=== PATIENT | female | born 2000 | race Two or more races ===

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

== ENCOUNTER → 2021-04-11 | Outpatient (CLI) | payer OTHER | END | disposition home or self-care (01) | LOC: LAB 07:57 | PROVIDERS: ATTEND Nurse Practitioner Family | DX: Z20.9 Contact with and (suspected) exposure to unspecified communicable disease (principal) | CPT/HCPCS: 36415; 86706; 86735; 86762; 86765; 86787 ==

== ENCOUNTER → 2021-12-30 | Outpatient (CLI) | payer MEDICAID | END | disposition home or self-care (01) | LOC: LAB 10:49 | PROVIDERS: ATTEND Obstetrics & Gynecology | DX: N91.2 Amenorrhea, unspecified (principal) | CPT/HCPCS: 36415; 84144; 84702 ==

== ENCOUNTER → 2022-01-17 | Outpatient (CLI) | payer MEDICAID | END | disposition home or self-care (01) | LOC: LAB 08:25 | PROVIDERS: ATTEND Obstetrics & Gynecology | DX: Z34.80 Encounter for supervision of other normal pregnancy, unspecified trimester (principal); Z3A.00 Weeks of gestation of pregnancy not specified | CPT/HCPCS: 36415; 84702 ==

== ENCOUNTER 2022-02-10 16:41 | Emergency (ER) | payer MEDICAID ==
[~2022-02-10] VITALS: Ht 157.5 cm; Wt 54.5 kg
[2022-02-10 17:19] LABS: Basophils # (auto) 0 10 ^3/uL (0-0.2); Basophils % (auto) 0.3 % (0.0-2.0); Eosinophils # (auto) 0.1 10 ^3/uL (0-0.8); Eosinophils % (auto) 0.7 % (0.0-7.0); Hematocrit 40.4 % (36.0-46.0); Hemoglobin 13.2 g/dL (12.2-16.2); Lymphocytes # (auto) 2.3 10 ^3/uL (0.4-5.4); Lymphocytes % (auto) 28.9 % (10.0-50.0); Mean Corpuscular Hemoglobin 29.3 pg (28.0-32.0); Mean Corpuscular Hgb Conc. 32.7 g/dL (32.0-36.0); Mean Corpuscular Volume 89.6 fL (80.0-100.0); Monocytes # (auto) 0.6 10 ^3/uL (0-1.3); Monocytes % (auto) 7.3 % (0.0-12.0); Neutrophils # (auto) 4.9 10 ^3/uL (1.6-8.6); Neutrophils % (auto) 62.8 % (37.0-80.0); Red Cell Distribution Width 13.1 % (11.8-14.3); White Blood Cell 7.8 10^3/uL (4.4-10.8)
[2022-02-10 18:06] LABS: Urine Bacteria NONE SEEN /hpf (None Seen); Urine Blood Negative /uL (Negative); Urine Specific Gravity 1.004 (1.001-1.035); Urine WBC 1 /hpf (0 - 5)
[2022-02-10 21:36] VITALS: BP 125/77
== END 2022-02-10 21:37 | disposition home or self-care (01) ==
LOC: ER 16:45
DX: O20.0 Threatened abortion (principal); Z88.8 Allergy status to other drugs, medicaments and biological substances; Z3A.01 Less than 8 weeks gestation of pregnancy
CPT/HCPCS: 36415; 76801; 76817; 81001; 84702; 85025

== ENCOUNTER → 2022-02-16 | Outpatient (CLI) | payer MEDICAID ==
[2022-02-16 11:58] LABS: Basophils # (auto) 0 10 ^3/uL (0-0.2); Basophils % (auto) 0.3 % (0.0-2.0); Eosinophils # (auto) 0 10 ^3/uL (0-0.8); Eosinophils % (auto) 0.3 % (0.0-7.0); Hematocrit 38.7 % (36.0-46.0); Hemoglobin 12.9 g/dL (12.2-16.2); Lymphocytes # (auto) 2.1 10 ^3/uL (0.4-5.4); Lymphocytes % (auto) 27.3 % (10.0-50.0); Mean Corpuscular Hemoglobin 29.7 pg (28.0-32.0); Mean Corpuscular Hgb Conc. 33.4 g/dL (32.0-36.0); Monocytes # (auto) 0.5 10 ^3/uL (0-1.3); Monocytes % (auto) 6.2 % (0.0-12.0); Neutrophils # (auto) 5.1 10 ^3/uL (1.6-8.6); Neutrophils % (auto) 65.9 % (37.0-80.0); Red Blood Cells 4.35 10^6/uL (4.0-5.20); Red Cell Distribution Width 13.1 % (11.8-14.3); White Blood Cell 7.7 10^3/uL (4.4-10.8)
[2022-02-16 12:23] LABS: Alcohol, Urine < 3.0 mg/dL (0-10); Amphetamine Screen, Urine NEGATIVE (NEGATIVE); Barbiturate Scree,Urine NEGATIVE (NEGATIVE); Benzodiazephine Screen, Urine NEGATIVE (NEGATIVE); Cannabinoid Screen, Urine NEGATIVE (NEGATIVE); Cocaine Screen, Urine NEGATIVE (NEGATIVE); Opiate Scree,Urine NEGATIVE (NEGATIVE); Phencyclidine Screen, Urine NEGATIVE (NEGATIVE)
[2022-02-17 08:06] LABS: RPR Non Reactive (Non Reactive)
== END | disposition home or self-care (01) ==
LOC: LAB 11:20
PROVIDERS: ATTEND Obstetrics & Gynecology
DX: Z34.80 Encounter for supervision of other normal pregnancy, unspecified trimester (principal); N39.0 Urinary tract infection, site not specified; Z31.430 Encounter of female for testing for genetic disease carrier status for procreative management; Z20.01 Contact with and (suspected) exposure to intestinal infectious diseases due to Escherichia coli (E. coli); Z3A.00 Weeks of gestation of pregnancy not specified
CPT/HCPCS: 36415; 80307; 83036; 84112; 84144; 84702; 85025; 86592; 86703; 86762; 86850; 86900; 86901; 87086; 87340

== ENCOUNTER 2022-02-26 08:15 | Emergency (ER) | payer MEDICAID ==
[~2022-02-26] VITALS: Ht 157.5 cm; Wt 55.0 kg
[2022-02-26 09:12] LABS: Urine WBC None Seen /hpf (0 - 5)
[2022-02-26 09:29] LABS: Urine Amorphous Crystal FEW /hpf (None Seen); Urine Bacteria MANY /hpf (None Seen); Urine Blood Negative /uL (Negative); Urine Specific Gravity 1.017 (1.001-1.035)
[2022-02-26 09:40] LABS: Basophils # (auto) 0 10 ^3/uL (0-0.2); Basophils % (auto) 0.3 % (0.0-2.0); Eosinophils # (auto) 0 10 ^3/uL (0-0.8); Eosinophils % (auto) 0.5 % (0.0-7.0); Hematocrit 38.7 % (36.0-46.0); Lymphocytes # (auto) 1.6 10 ^3/uL (0.4-5.4); Lymphocytes % (auto) 21.7 % (10.0-50.0); Mean Corpuscular Hgb Conc. 33.5 g/dL (32.0-36.0); Mean Corpuscular Volume 89.6 fL (80.0-100.0); Monocytes # (auto) 0.5 10 ^3/uL (0-1.3); Monocytes % (auto) 6.4 % (0.0-12.0); Neutrophils # (auto) 5.1 10 ^3/uL (1.6-8.6); Neutrophils % (auto) 71.1 % (37.0-80.0); Nucleated Red Blood Cells % 0.1 %; Red Blood Cells 4.32 10^6/uL (4.0-5.20); Red Cell Distribution Width 13.3 % (11.8-14.3); White Blood Cell 7.2 10^3/uL (4.4-10.8)
[2022-02-26 09:58] LABS: Albumin 3.6 g/dL (3.4-5.0); Calcium 8.3 mg/dL (8.5-10.1); Potassium 4.3 mmol/L (3.5-5.1)
[2022-02-26 10:02] LABS: BUN/Creatinine Ratio 19.5; Bilirubin, Total 0.3 mg/dL (0.2-1.0); Total Protein 7.1 g/dL (6.4-8.2)
[2022-02-26 13:12] VITALS: BP 105/60
== END 2022-02-26 13:13 | disposition home or self-care (01) ==
LOC: ER 08:15
DX: O20.8 Other hemorrhage in early pregnancy (principal); R10.2 Pelvic and perineal pain; Z88.8 Allergy status to other drugs, medicaments and biological substances; Z3A.01 Less than 8 weeks gestation of pregnancy
CPT/HCPCS: 36415; 76801; 76817; 80053; 81001; 84702; 85025

== ENCOUNTER → 2022-09-13 | Outpatient (CLI) | payer MEDICAID ==
[2022-09-13 09:06] LABS: Basophils # (auto) 0 10 ^3/uL (0-0.2); Basophils % (auto) 0.2 % (0.0-2.0); Eosinophils # (auto) 0.1 10 ^3/uL (0-0.8); Eosinophils % (auto) 0.6 % (0.0-7.0); Hematocrit 34.5 % (36.0-46.0); Hemoglobin 11.6 g/dL (12.2-16.2); Lymphocytes # (auto) 2.5 10 ^3/uL (0.4-5.4); Mean Corpuscular Hemoglobin 29.4 pg (28.0-32.0); Mean Corpuscular Hgb Conc. 33.8 g/dL (32.0-36.0); Monocytes # (auto) 0.8 10 ^3/uL (0-1.3); Monocytes % (auto) 8.4 % (0.0-12.0); Neutrophils # (auto) 5.9 10 ^3/uL (1.6-8.6); Neutrophils % (auto) 63.8 % (37.0-80.0); Nucleated Red Blood Cells % 0.1 %; Red Blood Cells 3.96 10^6/uL (4.0-5.20); Red Cell Distribution Width 13.2 % (11.8-14.3); White Blood Cell 9.3 10^3/uL (4.4-10.8)
[2022-09-14 05:07] LABS: RPR Non Reactive (Non Reactive)
== END | disposition home or self-care (01) ==
LOC: LAB 08:26
PROVIDERS: ATTEND Obstetrics & Gynecology
DX: Z34.80 Encounter for supervision of other normal pregnancy, unspecified trimester (principal); Z3A.00 Weeks of gestation of pregnancy not specified
CPT/HCPCS: 36415; 84112; 85025; 86592

== ENCOUNTER 2022-10-10 15:23 | Inpatient (IN) | payer MEDICAID ==
[~2022-10-10] VITALS: Ht 157.5 cm; Wt 78.5 kg
[2022-10-10] MEDS ORDERED: WITCH HAZEL-GLYCERIN PAD TOP PRN (17:00)
[2022-10-10] MEDS ORDERED: BUTORPHANOL TARTRATE 2 MG/1 ML VIAL IV PRN ×2 (17:00)
[2022-10-10] MEDS ORDERED: LIDOCAINE 2%HCL (LOCAL ANESTH.) INJ 20ML MDV IJ PRN (17:00)
[2022-10-10] MEDS ORDERED: PROMETHAZINE HCL 25 MG/ML 1ML IV PRN (17:00)
[2022-10-10] MEDS ORDERED: DERMOPLAST 60ML BOTTLE TOP PRN (17:00)
[2022-10-10] MEDS ORDERED: PHISODERM TOP SOLN 240ML BTL TOP PRN (17:00)
[2022-10-10] MEDS ORDERED: LACT. RINGERS/OXYTOCIN 20UNITS 500 ML IV ONE ×2 (17:15→17:45)
[2022-10-10] MEDS ORDERED: CARBOPROST TROMETHAMINE 250 MCG/1ML VIAL IM ONE (17:15)
[2022-10-10] MEDS ORDERED: miSOPROStol 100 mcg TAB PR PRN (17:15)
[2022-10-10] MEDS ORDERED: METHYLERGONOVINE MALEATE 0.2 MG/ML AMP IM PRN (17:15)
[2022-10-10 18:09] LABS: Basophils # (auto) 0 10 ^3/uL (0-0.2); Basophils % (auto) 0.2 % (0.0-2.0); Eosinophils # (auto) 0 10 ^3/uL (0-0.8); Eosinophils % (auto) 0.2 % (0.0-7.0); Hematocrit 39.7 % (36.0-46.0); Lymphocytes # (auto) 1.4 10 ^3/uL (0.4-5.4); Lymphocytes % (auto) 11.5 % (10.0-50.0); Mean Corpuscular Hemoglobin 28.7 pg (28.0-32.0); Mean Corpuscular Hgb Conc. 32.8 g/dL (32.0-36.0); Mean Corpuscular Volume 87.5 fL (80.0-100.0); Monocytes # (auto) 0.9 10 ^3/uL (0-1.3); Monocytes % (auto) 6.9 % (0.0-12.0); Neutrophils # (auto) 10.1 10 ^3/uL (1.6-8.6); Neutrophils % (auto) 81.2 % (37.0-80.0); Red Blood Cells 4.54 10^6/uL (4.0-5.20); Red Cell Distribution Width 15.1 % (11.8-14.3); White Blood Cell 12.4 10^3/uL (4.4-10.8)
[2022-10-10 18:22] LABS: Potassium 3.9 mmol/L (3.5-5.1)
[2022-10-10 18:24] LABS: INR 0.94 (0.9-1.15); Partial Thromboplastin Time 29.2 SEC (24.5-34.5)
[2022-10-10 18:28] LABS: Bilirubin, Total 0.1 mg/dL (0.2-1.0); Total Protein 7.6 g/dL (6.4-8.2)
[2022-10-10] MEDS ORDERED: LACT. RINGERS/OXYTOCIN 20UNITS 1,000 ML IV SCH (20:00)
[2022-10-10] MEDS ORDERED: TERBUTALINE SULFATE 1 MG/ML 1ML VIAL SC PRN (20:00)
[2022-10-10] MEDS: LACTATED RINGER'S 1,000 ML IV SCH ×2 (20:28→22:13)
[2022-10-10] MEDS ORDERED: NALOXONE HCL 0.4 MG/ML VIAL IV ONE ×2 (20:30→21:15)
[2022-10-10] MEDS ORDERED: ROPIVACAINE HCL 200 ML EPI SCH ×3 (20:30→21:45)
[2022-10-10] MEDS ORDERED: fentaNYL CITRATE 100 MCG/2 ML VL IV ONE (20:30)
[2022-10-10] MEDS ORDERED: ePHEDrine SULFATE 50 MG/ML AMP IV ONE ×2 (20:30→21:15)
[2022-10-10] MEDS ORDERED: LIDOCAINE HCL 2 %PF INJ 10ML AMP IJ ONE (20:30)
[2022-10-10] MEDS ORDERED: Lidocaine W-Epinephrine 1.5%-1:200,000 INJ 10ml Vial ONE (21:11)
[2022-10-10] MEDS ORDERED: Lidocaine W-Epinephrine 1.5%-1:200,000 INJ 10ml Vial IJ ONE (21:15)
[2022-10-11] VITALS (14 sets, daily range): BP systolic 91–112; BP diastolic 52–59; PULSE 87–121; RESP 16–20; TEMP 98–98.8; O2SAT 90–97
[2022-10-11] MEDS ORDERED: HYDR-4902 PO (00:36)
[2022-10-11] MEDS ORDERED: DOCU-94 PO (00:36)
[2022-10-11] MEDS ORDERED: IBUP-1456 PO (00:36)
[2022-10-11] MEDS ORDERED: ceFAZolin 1GM/50ML 50 ML IV SCH ×2 (00:45→10:00)
[2022-10-11] MEDS ORDERED: LACT. RINGERS/OXYTOCIN 20UNITS 1,000 ML IV ONE (00:45)
[2022-10-11] MEDS ORDERED: GUM (CHEWING) 1 GUM CHEW CHEW ONE (00:45)
[2022-10-11] MEDS ORDERED: ONDANSETRON HCL 4 MG/2 ML VIAL IV PRN ×2 (00:45→02:15)
[2022-10-11] MEDS ORDERED: CARBOPROST TROMETHAMINE 250 MCG/1ML VIAL IM ONE (01:12)
[2022-10-11] MEDS ORDERED: MORPHINE SULF PF 5 MG/10 ML VIAL ONE (01:18)
[2022-10-11] MEDS ORDERED: ONDANSETRON HCL 4 MG/2 ML VIAL ONE (01:38)
[2022-10-11 02:01] LABS: Urine Bacteria NONE SEEN /hpf (None Seen); Urine Blood 1+ /uL (Negative); Urine Specific Gravity 1.011 (1.001-1.035); Urine WBC 1 /hpf (0 - 5)
[2022-10-11 02:11] LABS: Alcohol, Urine < 3.0 mg/dL (0-10); Amphetamine Screen, Urine NEGATIVE (NEGATIVE); Barbiturate Scree,Urine NEGATIVE (NEGATIVE); Benzodiazephine Screen, Urine NEGATIVE (NEGATIVE); Cannabinoid Screen, Urine NEGATIVE (NEGATIVE); Cocaine Screen, Urine NEGATIVE (NEGATIVE); Opiate Scree,Urine NEGATIVE (NEGATIVE); Phencyclidine Screen, Urine NEGATIVE (NEGATIVE)
[2022-10-11] MEDS ORDERED: diphenhdrAMINE HCL 50 MG/1 ML VL IV PRN (02:15)
[2022-10-11] MEDS ORDERED: NALBUPHINE HCL 10 MG/1ml INJECTION SUBCUT ONE (02:15)
[2022-10-11] MEDS ORDERED: NALOXONE HCL 0.4 MG/ML VIAL IV PRN (02:15)
[2022-10-11] MEDS ORDERED: DexAMETHasone SOD PHOS 10MG/1ML VIAL INJ IV PRN (02:15)
[2022-10-11] MEDS ORDERED: HYDROmorphone HCL 2 MG/ML VL/or syr IV PRN (02:15)
[2022-10-11] MEDS ORDERED: KETOROLAC TROMETH 30 MG/ML 1ML VIAL IV PRN (02:15)
[2022-10-11] MEDS ORDERED: CLINDAMYCIN 600MG IV 50 ML IV SCH (06:00)
[2022-10-11] MEDS: LACTATED RINGER'S 1,000 ML IV SCH ×2 (09:00→17:25)
[2022-10-11] MEDS ORDERED: ACETAMINOPHEN IV 1000 MG/100ML (10MG/ML) IV PRN (13:00)
[2022-10-11 15:30] LABS: Basophils # (auto) 0 10 ^3/uL (0-0.2); Basophils % (auto) 0.2 % (0.0-2.0); Eosinophils # (auto) 0 10 ^3/uL (0-0.8); Eosinophils % (auto) 0.2 % (0.0-7.0); Hemoglobin 11.4 g/dL (12.2-16.2); Lymphocytes # (auto) 2.1 10 ^3/uL (0.4-5.4); Lymphocytes % (auto) 17.9 % (10.0-50.0); Mean Corpuscular Hemoglobin 28.4 pg (28.0-32.0); Mean Corpuscular Hgb Conc. 32.6 g/dL (32.0-36.0); Monocytes % (auto) 8.9 % (0.0-12.0); Neutrophils # (auto) 8.6 10 ^3/uL (1.6-8.6); Neutrophils % (auto) 72.8 % (37.0-80.0); Red Blood Cells 4.02 10^6/uL (4.0-5.20); Red Cell Distribution Width 15.4 % (11.8-14.3); White Blood Cell 11.8 10^3/uL (4.4-10.8)
[2022-10-11] MEDS: ceFAZolin 1GM/50ML 50 ML IV SCH (17:25)
[2022-10-12] MEDS ORDERED: BISACODYL 10 MG RECT SUPP PR PRN (01:30)
[2022-10-12] MEDS ORDERED: HYDROcodone-ACET 5/325MG TAB PO PRN ×2 (01:30)
[2022-10-12] MEDS: ceFAZolin 1GM/50ML 50 ML IV SCH ×2 (02:21→10:26)
[2022-10-12 03:00] VITALS: BP 104/59; PULSE 86; RESP 18; TEMP 97.9; O2SAT 95
[2022-10-12 06:35] VITALS: BP 98/62; PULSE 89; RESP 16; TEMP 98.5; O2SAT 96
[2022-10-12 06:59] LABS: Basophils # (auto) 0 10 ^3/uL (0-0.2); Basophils % (auto) 0.2 % (0.0-2.0); Eosinophils # (auto) 0 10 ^3/uL (0-0.8); Eosinophils % (auto) 0.4 % (0.0-7.0); Hemoglobin 11.7 g/dL (12.2-16.2); Lymphocytes # (auto) 2.2 10 ^3/uL (0.4-5.4); Lymphocytes % (auto) 22.6 % (10.0-50.0); Mean Corpuscular Hemoglobin 29.5 pg (28.0-32.0); Mean Corpuscular Hgb Conc. 33.6 g/dL (32.0-36.0); Mean Corpuscular Volume 87.8 fL (80.0-100.0); Monocytes # (auto) 0.8 10 ^3/uL (0-1.3); Monocytes % (auto) 8.1 % (0.0-12.0); Neutrophils # (auto) 6.7 10 ^3/uL (1.6-8.6); Neutrophils % (auto) 68.7 % (37.0-80.0); Nucleated Red Blood Cells % 0.1 %; Red Blood Cells 3.98 10^6/uL (4.0-5.20); Red Cell Distribution Width 15.3 % (11.8-14.3); White Blood Cell 9.7 10^3/uL (4.4-10.8)
[2022-10-12] MEDS: IBUPROFEN 800 MG TAB PO PRN ×2 (07:13→18:58)
[2022-10-12 08:06] LABS: RPR Non Reactive (Non Reactive)
[2022-10-12] MEDS ORDERED: DOCUSATE CALCIUM 240 MG CAP PO SCH (10:00)
[2022-10-12] MEDS: DOCUSATE SOD 100 MG CAP PO SCH ×2 (10:26→22:42)
[2022-10-12] MEDS: FERROUS SULFATE 325mg EC TAB PO SCH ×2 (10:27→22:43)
[2022-10-12 11:17] VITALS: BP 101/58; PULSE 90; RESP 16; TEMP 98; O2SAT 97
[2022-10-12] MEDS: SIMETHICONE 80 MG CHEWABLE TABLET PO SCH ×4 (12:17→22:43)
[2022-10-12 15:00] VITALS: BP 123/73; PULSE 108; RESP 16; TEMP 98.3; O2SAT 96
[2022-10-12 18:58] VITALS: BP 118/64; PULSE 98; RESP 16; TEMP 98; O2SAT 98
[2022-10-12 22:45] VITALS: BP 118/68; PULSE 63; RESP 15; TEMP 98.1; O2SAT 97
[2022-10-13] MEDS ORDERED: PRENCAP11 PO (01:36)
[2022-10-13 03:05] VITALS: BP 107/70; PULSE 85; RESP 15; TEMP 98.1; O2SAT 97
[2022-10-13] MEDS: SIMETHICONE 80 MG CHEWABLE TABLET PO SCH (05:10)
[2022-10-13 06:54] VITALS: BP 119/69; PULSE 75; RESP 16; TEMP 97.7; O2SAT 97
== END 2022-10-13 09:55 | disposition home or self-care (01) | DRG 540 ==
LOC: UNDOADMOB 15:23 → LDRP 15:23 → OBSVTOIN 17:00 → LDRP 17:05
PROVIDERS: ADMIT Obstetrics & Gynecology; ATTEND Obstetrics & Gynecology
PROC: 10D00Z1 Extraction of Products of Conception, Low, Open Approach (ICD-10-PCS; principal; 2022-10-11 00:55)
DX: O77.0 Labor and delivery complicated by meconium in amniotic fluid (principal); R71.0 Precipitous drop in hematocrit; O69.81X0 Labor and delivery complicated by cord around neck, without compression, not applicable or unspecified; O76 Abnormality in fetal heart rate and rhythm complicating labor and delivery; Z37.0 Single live birth; Z3A.39 39 weeks gestation of pregnancy; Z88.1 Allergy status to other antibiotic agents
CPT/HCPCS: 36415; 59025; 62282; 80053; 80307; 81001; 81002; 84112; 85025; 85610; 85730; 86592; 86850; 86900; 86901; 94760; 94762; 96360; 96361; 96374; G0378; J0131; J0690; J2405

== ENCOUNTER 2024-09-20 15:34 | Emergency (ER) | payer MEDICAID ==
[~2024-09-20] VITALS: Ht 160 cm; Wt 55.8 kg
[~2024-09-20 15:34] MED LIST: DOCU-94 PO; HYDR-4902 PO; IBUP-1456 PO; PRENCAP11 PO
[2024-09-20] MEDS ORDERED: ONDANSETRON HCL 4 MG/2 ML VIAL IV ONE (18:00)
--- NOTE | 2024-09-20 18:32 | DVH ---
Procedure: US ABDOMEN LIMITED Study Date and Requested Time: 09/20/2024 05:54 PM History: ruq pain Comparison: None Technique: Multiple high resolution henry-scale images obtained of the right upper quadrant of the abd omen with color Doppler for evaluation of blood flow and vascularity as indicated. Findings: Liver normal in size, measuring 16 cm in length, with homogenous echotexture and normal contours. No evidence of focal hepatic lesions, intrahepatic or extrahepatic ductal dilatation. Common bile duct m easures 0.3 cm in diameter. Gallbladder unremarkable with no evidence of abnormal wall thickening, gallstones, biliary sludge, or pericholecystic fluid. Negative sonographic Dillard's sign. Pancreas is unremarkable. Right kidney measures 12.2 cm in length, with normal contours, echotexture, and cortical thickness. N o evidence of hydronephrosis, calculi, cystic or solid renal lesions. Partially visualized inferior vena cava unremarkable. Impression: Unremarkable sonographic study of the right upper abdominal quadrant.
[2024-09-20 18:37] LABS: Hematocrit 42.2 % (36.0-46.0); Hemoglobin 14.6 g/dL (12.2-16.2); Mean Corpuscular Hemoglobin 30.2 pg (28.0-32.0); Mean Corpuscular Volume 87.5 fL (80.0-100.0); Nucleated Red Blood Cells % 0.1 %
[2024-09-20 18:51] LABS: Alanine Aminotransferase 19 U/L (7-40); Albumin 4.6 g/dL (3.2-4.8); Anion Gap 7 (5-15); BUN/Creatinine Ratio 18.2 (10.0-20.0); Bilirubin, Total 0.4 mg/dL (0.2-1.0); Calcium 9.1 mg/dL (8.7-10.4); Carbon Dioxide 26 mmol/L (20-31); Chloride 103 mmol/L (98-107); Lipase 40 U/L (12-53); Potassium 3.6 mmol/L (3.5-5.1); Total Protein 7.1 g/dL (5.7-8.2)
[2024-09-20 19:05] LABS: Alkaline Phosphatase 44 U/L (46-116); Blood Urea Nitrogen 8 mg/dL (9-23); Glucose 102 mg/dL (74-106); Sodium 136 mmol/L (136-145)
--- NOTE | 2024-09-20 19:19 | ED.PDOC ---
GI ASSESSMENT HPI Comments Tello: epig pain HPI: Poor Historian. Past Medical History: Past Surgical History: 24y F who presents to the ED for chief complaint of abdominal pain - pt states she has been having epigastric abdominal pain for the past 2 weeks - pt states her pain is intermittent, non-radiating, tightness in nature, with no associated exacerbating or relieving factors - pt states she is , , 3A, 10 weeks , - pt has no associated symptoms and denies any associated vaginal bleeding - pt denies any spicy or greasy food in the past few weeks Past Medical History: anxiety Past Surgical History: 1x Social History: Denies ETOH, smoking, and drug use. Medications: denies Allergies: Keflex REVIEW OF SYSTEMS: CONSTITUTIONAL: Denies acute: fever, diaphoresis, chills, generalized weakness. HEAD: Denies acute: headache, photophobia Eyes: Denies acute: Double vision, vision loss, eye pain, eye discharge. EARS: Denies acute: tinnitus, hearing loss, ear discharge, ear pain, THROAT: Denies acute: sore throat, swelling, difficulty swallowing , pain with swallowing, change in voice. NECK: Denies acute: neck pain, neck swelling, stiff neck. HEART: Denies acute : chest pain, palpitations, LUNGS: Denies acute: SOB, wheezing, cough, hemoptysis ABDOMEN: Denies acute: Nausea, Vomiting, diarrhea, melena , hematemesis, hematochezia SKIN: Denies acute: rash, redness, lesions, itchiness. EXTREMITIES: Denies acute: calf pain, numbness, tingling, weakness, denies pain in extremity. Denies acute: Low back pain. Neuro: Denies acute: focal neurological deficit, motor or sensory focal neurological deficit, tremors, seizure like activity, confusion, dizziness, change in mental status, loss of bowel or bladder function, cauda equina like symptoms. : Denies acute: dysuria, hematuria, flank pain, increase in urinary frequency. PSYCH: Denies acute: hallucination, suicidal ideation, homicidal ideation. FEMALE: Denies acute: abnormal vaginal bleeding, foul odor, unusual discharge. PHYSICAL EXAM: General: ---no-----acute distress, awake and alert. Head: normocephalic, atraumatic. Neck: supple, trachea is midline, no swelling. Throat: Normal phonation. Eyes:, no erythema, no purulent discharge, no proptosis, no icterus. Heart: regular rate, regular rhythm, no significant murmur appreciated. Lungs: no apparent respiratory distress, Able to speak in full sentences. No wheezing, no rhonchi, no crackles. No stridors Clear to auscultation bilaterally. Abdomen: Focal epigastric tender to palpation, non distended, soft, no guarding, no rebound, + bowel sounds. No tenderness to palpation in any other quadrant. Neuro: Awake, Alert, oriented to name, self, situation, follows commands GCS=15. Speech is normal. Skin: no petechia, no purpura, no cyanosis, non-pale, not jaundice. Lower extremities: --no - Pitting edema no deformity, no focal swelling, no calf TTP. Makes eye contact. moves all four extremities. Face: no apparent facial droop. No CVA tenderness to percussion bilaterally. Ambulating in the ED independently. Ears: Normal appearing TM b/l, Stroke: finger to nose cerebellar testing is intact. No pronator drift. Symmetrical healthcare architect muscle strength b/l PERRLA, EOM-I CN 2-12 are grossly intact, Pedal pulses are palpable. No nystagmus. No nuchal rigidity, Kernig's sign, Brudzinski's sign, no meningeal signs. ED COURSE: DISCLAIMER: This medical document was created using an electronic medical record system with voice recognition software and computerized dictation system. Although this document has been carefully reviewed, there might still be some phonetic and typographical errors. Occasional wrong-word or "sound-alike" substitutions may have occurred due to the inherent limitations of voice recognition software. These areas are purely typographical due to imperfections of the software programs and do not reflect any compromise in the patient's medical care. Please read the chart carefully and recognize, using context, where these substitutions have occurred. Chief Complaint: Abdominal Pain Time Seen by MD: 17:42 Primary Care Provider: n/a Reviewed Notes: Allergies Allergies: Coded Allergies: Cephalexin (Verified Allergy, Unknown, rash, 02/19/18) Home Meds Active Scripts Vit W/ Fe Fum-Iron Po (Concept Dha) Cap, 1 CAP PO DAILY, #90 CAP 3 Refills Prov:JESSY MONTERROSO CNJennifer 10/13/22 Ibuprofen (Ibuprofen) 800 Mg Tab, 800 MG PO TID PRN for 15 Days, #40 TAB Prov:LISSETT MAIER DO 10/11/22 Hydrocodone-Acetaminophen (Hydrocodone Bitartrate/AC 5-325 mg) 1 Tab Tab, 1 TAB PO Q6HPRN PRN for 5 Days, #20 TAB Prov:LISSETT MAIER DO 10/11/22 Docusate Sodium (Colace) 100 Mg Cap, 1 CAP PO BID, #60 CAP 2 Refills Prov:LISSETT MAIER 10/11/22 Information Source: Patient Mode of Arrival: Ambulatory Past Medical History PAST MEDICAL HISTORY: Denies Surgical History: Denies all surgeries MANAGER PATHOLOGY History: Spontaneous Family History Family History: Unknown Social History Smoker: Non-Smoker Alcohol: Rarely Drugs: Denies Drug Use Lives In: Home Was a procedure done? Was a procedure done?: No X-Ray, Labs, Meds, VS Vital Signs Date Time Temp Pulse Resp B/P (MAP) Pulse Ox O2 Delivery O2 Flow Rate FiO2 09/20/24 20:50 75 16 113/47 (69) 99 09/20/24 19:35 99.1 88 16 104/62 (76) 98 99.1 09/20/24 17:52 98.3 90 18 112/70 (84) 100 98.3 09/20/24 17:52 90 18 100 Room Air 09/20/24 16:00 99.0 99 16 128/73 (91) 98 99.0 Lab Test 09/20/24 18:18 09/20/24 15:56 Range/Units White Blood Count 9.3 4.4-10.8 10^3/uL Red Blood Count 4.82 4.0-5.20 10^6/uL Hemoglobin 14.6 12.2-16.2 g/dL Hematocrit 42.2 36.0-46.0 % Mean Corpuscular Volume 87.5 80.0-100.0 fL Mean Corpuscular Hemoglobin 30.2 28.0-32.0 pg Mean Corpuscular Hemoglobin Concent 34.6 32.0-36.0 g/dL Red Cell Distribution Width 13.7 11.8-14.3 % Platelet Count 301 140-450 10^3/uL Mean Platelet Volume 8.4 6.9-10.8 fL Neutrophils (%) (Auto) 77.7 37.0-80.0 % Lymphocytes (%) (Auto) 16.6 10.0-50.0 % Monocytes (%) (Auto) 5.4 0.0-12.0 % Eosinophils (%) (Auto) 0.2 0.0-7.0 % Basophils (%) (Auto) 0.1 0.0-2.0 % Neutrophils # (Auto) 7.2 1.6-8.6 10 ^3/uL Lymphocytes # (Auto) 1.5 0.4-5.4 10 ^3/uL Monocytes # (Auto) 0.5 0-1.3 10 ^3/uL Eosinophils # (Auto) 0 0-0.8 10 ^3/uL Basophils # (Auto) 0 0-0.2 10 ^3/uL Nucleated Red Blood Cells 0.1 % Sodium Level 136 136-145 mmol/L Potassium Level 3.6 3.5-5.1 mmol/L Chloride Level 103 98-107 mmol/L Carbon Dioxide Level 26 20-31 mmol/L Anion Gap 7 5-15 Blood Urea Nitrogen 8 L 9-23 mg/dL Creatinine 0.44 L 0.550-1.02 mg/dL Glomerular Filtration Rate Calc 138 >90 mL/min BUN/Creatinine Ratio 18.2 10.0-20.0 Serum Glucose 102 74-106 mg/dL Lactic Acid Level 0.5 0.4-2.0 mmol/L Calcium Level 9.1 8.7-10.4 mg/dL Total Bilirubin 0.4 0.2-1.0 mg/dL Aspartate Amino Transferase (AST) 14 13-40 U/L Alanine Aminotransferase (ALT) 19 7-40 U/L Alkaline Phosphatase 44 L 46-116 U/L Troponin I High Sensitivity < 3 L </=34 ng/L Total Protein 7.1 5.7-8.2 g/dL Albumin 4.6 3.2-4.8 g/dL Lipase 40 12-53 U/L Urine Color Yellow Yellow Urine Clarity Turbid H Clear Urine pH 6.5 5.0-9.0 Urine Specific [place] 1.020 1.001-1.035 Urine Protein Trace H Negative Urine Ketones Negative Negative Urine Blood Negative Negative /uL Urine Nitrite Negative Negative Urine Bilirubin Negative Negative Urine Urobilinogen Normal Negative mg/dL Urine Leukocyte Esterase Negative Negative /uL Urine RBC 1 0 - 4 /hpf Urine Microscopic WBC 3 0-5 /HPF Urine Squamous Epithelial Cells Few <5 /hpf Urine Bacteria Few H None Seen /hpf Urine Mucus Few None Seen Urine Glucose Normal Normal mg/dL Urine Opiates Screen Neg NEGATIVE Urine Fentanyl Screen Neg NEGATIVE Urine Barbiturates Screen Neg NEGATIVE Urine Phencyclidine Screen Neg NEGATIVE Urine Amphetamines Screen Neg NEGATIVE Urine Benzodiazepines Screen Neg NEGATIVE Urine Cocaine Screen Neg NEGATIVE Urine Cannabinoids Screen Neg NEGATIVE Current Medications Medications (Trade) Dose Ordered Sig/Taylor Route Start Time Stop Time Status Last Admin Sucralfate (Carafate Tab) 1 gm ONCE ONCE PO 09/20/24 19:30 09/20/24 19:31 DC 09/20/24 20:28 Pantoprazole Sodium (Protonix Tablet) 40 mg ONCE ONCE PO 09/20/24 19:30 09/20/24 19:31 DC 09/20/24 20:28 Lidocaine HCl (Xylocaine 2% Viscous) 10 ml ONCE ONCE PO 09/20/24 19:30 09/20/24 19:31 DC 09/20/24 20:27 [place] [address] Ph: [phone] DIAGNOSTIC IMAGING Diagnostic Imaging Report : [id number] Signed PATIENT: MARIO TELLO ACCT: [id number] UNIT: [id number] : 2000 LOC: ER ROOM / BED: / AGE / SEX: 24 / F ADM STATUS: REG ER SERVICE [id number] ORDERING PHYSICIAN: KATELYN PICKARD DO PROCEDURE(s): ABDL - ABDOMEN LIMITED REASON: ruq pain ORDER NUMBER(s): [id number], ACCESSION NUMBER(s): [id number] Procedure: US ABDOMEN LIMITED Study Date and Requested Time: 09/20/2024 05:54 PM History: ruq pain Comparison: None Technique: Multiple high resolution henry-scale images obtained of the right upper quadrant of the abdomen with color Doppler for evaluation of blood flow and vascularity as indicated. Findings: Liver normal in size, measuring 16 cm in length, with homogenous echotexture and normal contours. No evidence of focal hepatic lesions, intrahepatic or extrahepatic ductal dilatation. Common bile duct measures 0.3 cm in diameter. Gallbladder unremarkable with no evidence of abnormal wall thickening, gallstones, biliary sludge, or pericholecystic fluid. Negative sonographic Dillard's sign. Pancreas is unremarkable. Right kidney measures 12.2 cm in length, with normal contours, echotexture, and cortical thickness. No evidence of hydronephrosis, calculi, cystic or solid renal lesions. Partially visualized inferior vena cava unremarkable. Impression: Unremarkable sonographic study of the right upper abdominal quadrant. ATED BY: LIYAH BEAN DO DICTATED DATE/TIME: 09/20/241829 SIGNED BY: LIYAH BEAN DO SIGNED DATE/TIME: 09/20/241829 CC: Patient Education/Counseling: Diagnosis, Treatment Family Education/Counseling: No Family Present SEPSIS Sepsis Screen Date sepsis recognized/suspect: Sep 20, 2024 Time Sepsis recognized/suspect: 1600 Recent Procedure: No On Antibiotic Therapy: No Respiratory Rate >20: No Heart Rate >90: Yes Temp<36 C (96.8 F) or >38.3 C: No SBP <90 or MAP <65 mmHG: No New Acute Mental Status Change: No Is the patient on CPAP, BIPAP,: No Physician Orders Electrocardigram (09/20/24 17:55) Abdomen Limited (09/20/24 17:55) Vital Signs Date Time Temp Pulse Resp B/P (MAP) Pulse Ox O2 Delivery O2 Flow Rate FiO2 09/20/24 20:50 75 16 113/47 (69) 99 09/20/24 19:35 99.1 88 16 104/62 (76) 98 99.1 09/20/24 17:52 98.3 90 18 112/70 (84) 100 98.3 09/20/24 17:52 90 18 100 Room Air 09/20/24 16:00 99.0 99 16 128/73 (91) 98 99.0 Laboratory Tests Test 09/20/24 18:18 Lactic Acid Level 0.5 mmol/L (0.4-2.0) White Blood Count 9.3 10^3/uL (4.4-10.8) Medications Medications Dose Ordered Sig/Taylor Route Start Time Stop Time Status Last Admin Dose Admin Lidocaine HCl 10 ml ONCE ONCE PO 09/20/24 19:30 09/20/24 19:31 DC 09/20/24 20:27 Pantoprazole Sodium 40 mg ONCE ONCE PO 09/20/24 19:30 09/20/24 19:31 DC 09/20/24 20:28 Sucralfate 1 gm ONCE ONCE PO 09/20/24 19:30 09/20/24 19:31 DC 09/20/24 20:28 Departure 1 Departure Time of Disposition: 19:24 Impression: Primary Impression: Epigastric pain Disposition: HOME / SELF CARE / HOMELESS Condition: Stable Additional Instructions: Additional instructions: You MUST follow-up with your primary care/family doctor in 1 to 2 days. If you are unable to see your primary care/family doctor, please return to our emergency room for re-assessment and re-evaluation in 1 to 2 days. Return to the emergency room here in our facility or to the nearest ER [facility] if your symptoms change or worsen. CONSULTATIONS: you MUST Follow-up for consultation as soon as possible with: [facility] in 1-2 days. Please call for appointment. You MUST call the consultants office yourself to make an appointment. You may need to arrange that through your insurance and/or your primary/family doctor. If you are unable to see the technical services consultant in 1 to 2 days, you must return to our emergency room (or any other ER of your choice) for re-assessment and re- evaluation. Adequate fluid hydration. Avoid all fatty greasy spicy food. Avoid caffeinated products. Avoid NSAIDs. Below is a copy of your radiological report for follow up: [address] [address] Ph: [phone] DIAGNOSTIC IMAGING Diagnostic Imaging Report : [id number] Signed PATIENT: MARIO TELLO ACCT: [id number] UNIT: [id number] : 2000 LOC: ER ROOM / BED: / AGE / SEX: 24 / F ADM STATUS: REG ER SERVICE [id number] ORDERING PHYSICIAN: KATELYN PICKARD DO PROCEDURE(s): ABDL - ABDOMEN LIMITED REASON: ruq pain ORDER NUMBER(s): [id number], ACCESSION NUMBER(s): [id number] Procedure: US ABDOMEN LIMITED Study Date and Requested Time: 09/20/2024 05:54 PM History: ruq pain Comparison: None Technique: Multiple high resolution henry-scale images obtained of the right upper quadrant of the abdomen with color Doppler for evaluation of blood flow and vascularity as indicated. Findings: Liver normal in size, measuring 16 cm in length, with homogenous echotexture and normal contours. No evidence of focal hepatic lesions, intrahepatic or extrahepatic ductal dilatation. Common bile duct measures 0.3 cm in diameter. Gallbladder unremarkable with no evidence of abnormal wall thickening, gallstones, biliary sludge, or pericholecystic fluid. Negative sonographic Dillard's sign. Pancreas is unremarkable. Right kidney measures 12.2 cm in length, with normal contours, echotexture, and cortical thickness. No evidence of hydronephrosis, calculi, cystic or solid renal lesions. Partially visualized inferior vena cava unremarkable. Impression: Unremarkable sonographic study of the right upper abdominal quadrant. ATED BY: LIYAH BEAN DO DICTATED DATE/TIME: 09/20/241829 SIGNED BY: LIYAH BEAN DO SIGNED DATE/TIME: 09/20/241829 CC: Discharged With: Self Critical Care Note Critical Care Time?: No I personally scribed for KATELYN PICKARD DO ([email or web address]) on 09/20/24 at 19:19. Electronically submitted by Isma Lyons ([facility] [place]). I personally scribed for KATELYN PICKARD DO ([email or web address]) on 09/20/24 at 20:27. Electronically submitted by Isma Lyons ([facility] [place]). I personally scribed for KATELYN PICKARD DO ([email or web address]) on 09/20/24 at 21:39. Electronically submitted by Isma Lyons ([email or web address]). KATELYN PICKARD DO Sep 20, 2024 19:19
[2024-09-20 19:35] VITALS: TEMP 99.1
[2024-09-20 19:45] LABS: Opiate Scree,Urine Neg (NEGATIVE); Phencyclidine Screen, Urine Neg (NEGATIVE)
[2024-09-20 19:46] LABS: Urine Protein, UAD TRACE (Negative)
[2024-09-20 19:55] LABS: Amphetamine Screen, Urine Neg (NEGATIVE); Barbiturate Scree,Urine Neg (NEGATIVE); Benzodiazephine Screen, Urine Neg (NEGATIVE); Cannabinoid Screen, Urine Neg (NEGATIVE); Cocaine Screen, Urine Neg (NEGATIVE)
[2024-09-20] MEDS: LIDOCAINE VISCOUS 2% 15ML UD PO ONE (20:27)
[2024-09-20] MEDS: PANTOPRAZOLE 40 MG TAB PO ONE (20:28)
[2024-09-20] MEDS: SUCRALFATE 1 GM TAB PO ONE (20:28)
[2024-09-20 20:50] VITALS: BP 113/47; PULSE 75; RESP 16; O2SAT 99
[2024-09-20] MEDS: SODIUM CHLORIDE 0.9% 1,000 ML IV ONE (20:50)
== END 2024-09-20 20:53 | disposition home or self-care (01) ==
LOC: ER 15:34
DX: O26.891 Other specified pregnancy related conditions, first trimester (principal); R10.13 Epigastric pain; Z3A.10 10 weeks gestation of pregnancy; Z88.1 Allergy status to other antibiotic agents
CPT/HCPCS: 36415; 76705; 80053; 80307; 81001; 83605; 83690; 84484; 85025

== ENCOUNTER → 2024-09-26 | Outpatient (CLI) | payer MEDICAID ==
[2024-09-26 12:11] LABS: Hematocrit 39.0 % (36.0-46.0); Hemoglobin 13.3 g/dL (12.2-16.2); Mean Corpuscular Hemoglobin 30.1 pg (28.0-32.0); Mean Corpuscular Volume 88.6 fL (80.0-100.0); Nucleated Red Blood Cells % 0.0 %
[2024-09-26 12:50] LABS: Amphetamine Screen, Urine Neg (NEGATIVE); Barbiturate Scree,Urine Neg (NEGATIVE); Benzodiazephine Screen, Urine Neg (NEGATIVE); Cannabinoid Screen, Urine Neg (NEGATIVE); Cocaine Screen, Urine Neg (NEGATIVE); Opiate Scree,Urine Neg (NEGATIVE); Phencyclidine Screen, Urine Neg (NEGATIVE)
[2024-09-27 20:07] LABS: Chlamydia Trachomatis, NAA Negative (Negative); Neisseria gonorrhoeae, NAA Negative (Negative)
== END | disposition home or self-care (01) ==
LOC: LAB 10:30
PROVIDERS: ATTEND Obstetrics & Gynecology
DX: Z34.00 Encounter for supervision of normal first pregnancy, unspecified trimester (principal); Z72.51 High risk heterosexual behavior; Z3A.00 Weeks of gestation of pregnancy not specified
CPT/HCPCS: 36415; 80307; 83036; 84144; 84702; 85025; 86703; 86762; 86780; 86850; 86900; 86901; 87086; 87340